=== PATIENT | female | born 1985 | race Caucasian/White ===

== ENCOUNTER 2019-01-26 23:16 | Emergency (ER) | payer SELFPAY ==
[2019-01-27] MEDS ORDERED: HYDROcodone/Acetaminophen 5/325 mg Tablet ONE (00:18)
[2019-01-27 00:44] LABS: Bilirubin Negative (Negative); Blood, Urine Negative (Negative); Clarity Clear (Clear); Glucose, Urine (Dipstick) Normal (Negative); Leukocyte Negative Leu/uL (Negative); Nitrite Negative (Negative); Protein, Urine (Dipstick) Negative (Neg-Trace); Urobilinogen Normal mg/dL (Less than 2)
[2019-01-27 00:48] LABS: Pregnancy Test - Urine (BHCG) Negative (Negative); Specific Gravity 1.003 (1.002-1.036)
[2019-01-27 00:49] LABS: Pregu Control Background? CLEAR/WHITE (CLR/WHITE); Pregu Control Bar Appear? YES (CONTROL BAR)
[2019-01-27] MEDS ORDERED: metroNIDAZOLE 250 MG TAB ONE (01:58)
== END 2019-01-27 02:04 | disposition home or self-care (01) ==
LOC: ERS 23:16
DX: N76.0 Acute vaginitis (principal); F17.210 Nicotine dependence, cigarettes, uncomplicated
CPT/HCPCS: 81003; 81025; 87480; 87491; 87510; 87591; 87660; 99284